=== PATIENT | female | born 1965 | race Caucasian/White ===

== ENCOUNTER 2019-12-11 13:40 | Emergency (ER) | payer BC ==
[~2019-12-11] VITALS: Ht 162.6 cm; Wt 74.4 kg
[2019-12-11] MEDS ORDERED: EFFEXOR XR150 MG (13:58)
[2019-12-11] MEDS ORDERED: TRAZODONE HCL150 MG (13:58)
[2019-12-11] MEDS ORDERED: LIPITOR20 MG (13:59)
== END 2019-12-11 18:47 | disposition home or self-care (01) ==
LOC: ER 13:40
DX: S83.8X1A Sprain of other specified parts of right knee, initial encounter (principal); X50.0XXA Overexertion from strenuous movement or load, initial encounter; Y93.89 Activity, other specified; Y92.89 Other specified places as the place of occurrence of the external cause; Y99.8 Other external cause status

== ENCOUNTER 2024-03-27 11:53 | Outpatient (CLI) | payer BC ==
[~2024-03-27 11:53] MED LIST: EFFEXOR XR150 MG; LIPITOR20 MG; TRAZODONE HCL150 MG
== END 2024-03-27 11:58 | disposition home or self-care (01) ==
LOC: MAMO-SONO 11:53
DX: N62 Hypertrophy of breast (principal); Z12.31 Encounter for screening mammogram for malignant neoplasm of breast